=== PATIENT | male | born 1960 | race Caucasian/White ===

== ENCOUNTER 2017-01-30 15:41 | Outpatient (CLI) | payer MEDICARE | END 2017-01-30 15:42 | disposition home or self-care (01) | DRG 554 | LOC: CONVCARE 15:41 | PROVIDERS: ATTEND Orthopaedic Surgery | DX: M16.11 Unilateral primary osteoarthritis, right hip (principal) | CPT/HCPCS: 72170; 73502 ==

== ENCOUNTER 2017-03-27 11:51 | Outpatient (CLI) | payer MEDICARE | END 2017-03-27 11:52 | disposition home or self-care (01) | DRG 554 | LOC: CONVCARE 11:51 | PROVIDERS: ATTEND Orthopaedic Surgery | DX: M16.11 Unilateral primary osteoarthritis, right hip (principal) ==